=== PATIENT | male | born 1990 | race Caucasian/White ===

== ENCOUNTER 2022-01-10 20:53 | Emergency (ER) | payer SELFPAY ==
[2022-01-10] MEDS ORDERED: Lidocaine 1% PF 2 ML SDV INJECT ONE (20:57)
[2022-01-10] MEDS ORDERED: Bacitracin Oint 1 GM U/D Packet TOP ONE (20:57)
[2022-01-10] MEDS ORDERED: Diphtheria,Pertussis(Acell),Tetanus Vaccine 0.5 ML Syringe IM ONE (20:57)
[2022-01-10] MEDS ORDERED: Octyl 2-Cyanoacrylate 1 Tube ONE (21:08)
[2022-01-10] MEDS ORDERED: Octyl 2-Cyanoacrylate 1 Tube TOP STA (21:09)
== END 2022-01-10 21:20 | disposition home or self-care (01) ==
LOC: MW.ED 20:53
DX: S01.112A Laceration without foreign body of left eyelid and periocular area, initial encounter (principal); S01.81XA Laceration without foreign body of other part of head, initial encounter; Z23 Encounter for immunization; X58.XXXA Exposure to other specified factors, initial encounter
CPT/HCPCS: 12011; 90471; 90715; 99283; A9270

== ENCOUNTER 2023-01-04 23:04 | Emergency (ER) | payer BC ==
[2023-01-04] MEDS ORDERED: Lidocaine/Epineph/Tetracaine 3 ML Syringe TOP ONE (23:16)
[2023-01-04] MEDS ORDERED: Acetaminophen 500 MG Tab PO ONE (23:52)
== END 2023-01-05 00:45 | disposition home or self-care (01) ==
LOC: MW.ED 23:04
DX: S01.21XA Laceration without foreign body of nose, initial encounter (principal); W10.9XXA Fall (on) (from) unspecified stairs and steps, initial encounter
CPT/HCPCS: 12013; 70450; 70486; 72125; 99283; A9270

== ENCOUNTER 2023-07-05 23:36 | Emergency (ER) | payer BC ==
[2023-07-05] MEDS ORDERED: traMADol 50 MG Tab PO ONE (23:45)
== END 2023-07-06 00:39 | disposition home or self-care (01) ==
LOC: MW.ED 23:36
DX: S83.91XA Sprain of unspecified site of right knee, initial encounter (principal); W19.XXXA Unspecified fall, initial encounter
CPT/HCPCS: 73562; 99283; A9270

== ENCOUNTER 2023-11-17 07:50 | Emergency (ER) | payer SELFPAY ==
[2023-11-17 08:47] LABS: CORONAVIRUS COVID-19 NAA NEGATIVE (NEGATIVE); INFLUENZA A NAA NEGATIVE (NEGATIVE); INFLUENZA B NAA NEGATIVE (NEGATIVE); RESPIRATORY SYNCYTIAL VIR NAA NEGATIVE (NEGATIVE)
== END 2023-11-17 09:55 | disposition home or self-care (01) ==
LOC: MW.ED 07:50
DX: B34.9 Viral infection, unspecified (principal); R05.9 Cough, unspecified; Z20.822 Contact with and (suspected) exposure to COVID-19; Z79.899 Other long term (current) drug therapy
CPT/HCPCS: 0241U; 87651; 99283

== ENCOUNTER 2024-10-29 15:10 | Emergency (ER) | payer SELFPAY | END 2024-10-29 16:34 | disposition left against medical advice (07) | LOC: MW.ED 15:10 | DX: Z53.21 Procedure and treatment not carried out due to patient leaving prior to being seen by health care provider (principal) ==